=== PATIENT | male | born 1955 | race Caucasian/White ===

== ENCOUNTER 2016-08-29 00:34 | Emergency (ER) | payer OTHER ==
[~2016-08-29] VITALS: Ht 172.7 cm; Wt 94.3 kg
[~2016-08-29 00:34] MED LIST: ATARAX,VISTARIL25 MG PO; AZITHROMYCIN250 MG1 PO; DICLOFENAC SOD; FLEXERIL10 MG PO; IBUPROFEN800 MG; MEDROL DOSEPAK4 MG; MIRTAZAPINE30 MG; NAPROSYN500 MG PO; ROXICODONE5 MG PO; SERTRALINE HCL100 MG
[2016-08-29] MEDS ORDERED: MOTRIN600 MG PO (01:45)
[2016-08-29 02:19] VITALS: BP 132/91
== END 2016-08-29 02:19 | disposition home or self-care (01) ==
LOC: EXP 00:34 → EME 00:34
DX: S63.501A Unspecified sprain of right wrist, initial encounter (principal); W17.2XXA Fall into hole, initial encounter; Y93.01 Activity, walking, marching and hiking; Y92.007 Garden or yard of unspecified non-institutional (private) residence as the place of occurrence of the external cause
CPT/HCPCS: 73130; 99281; 99284

== ENCOUNTER 2017-06-28 17:31 | Emergency (ER) | payer OTHER ==
[~2017-06-28] VITALS: Ht 172.7 cm; Wt 94.8 kg
[~2017-06-28 17:31] MED LIST changes: +MOTRIN600 MG PO
[2017-06-28 19:03] LABS: HEMOGLOBIN 17.5 G/DL (12.5-16.6); MCH 33.7 PG (29.0-34.0); MCV 96.2 FL (86-99); PLATELET COUNT 200 K/uL (156-360); RBC DIS.WIDTH-CV 12.4 % (11.8-14.6); RBC DIS.WIDTH-SD 44.5 % (39-53); WHITE BLOOD COUNT 8.8 K/uL (4.1-10.2)
[2017-06-28 19:13] LABS: ALBUMIN 4.4 g/dL (3.2-4.8); CHLORIDE 106 mEq/L (99-109); POTASSIUM 4.4 mEq/L (3.7-5.4); SODIUM 138 mEq/L (136-147)
[2017-06-28 19:16] LABS: GLUCOSE 99 mg/dL (70-99); TOTAL PROTEIN 7.7 g/dL (6.4-8.3)
[2017-06-28 19:18] LABS: TOTAL BILIRUBIN 0.7 mg/dL (0.0-1.0)
[2017-06-28 19:19] LABS: ALKALINE PHOSPHATASE 78 IU/L (3-129); CREATININE 1.1 mg/dL (0.6-1.3); GFR ESTIMATE (CALCULATED) > 59 mL/min/ (58.99-99999)
[2017-06-28 19:20] LABS: UREA NITROGEN (BUN) 13 mg/dL (9-23)
[2017-06-28 19:21] LABS: AST (GOT) 22 IU/L (2-34)
[2017-06-28 19:22] LABS: ALT (GPT) 25 IU/L (3-49)
[2017-06-28] MEDS ORDERED: LORTAB 10-3251 EACH PO (19:39)
[2017-06-28 19:59] VITALS: BP 122/83
== END 2017-06-28 20:01 | disposition home or self-care (01) ==
LOC: EME 17:31
PROVIDERS: Emergency Medicine
DX: M79.671 Pain in right foot (principal); R11.2 Nausea with vomiting, unspecified; Z98.890 Other specified postprocedural states; F32.9 Major depressive disorder, single episode, unspecified; B19.20 Unspecified viral hepatitis C without hepatic coma; M19.90 Unspecified osteoarthritis, unspecified site; F17.200 Nicotine dependence, unspecified, uncomplicated; Z88.5 Allergy status to narcotic agent
CPT/HCPCS: 80053; 85027; 99281; 99284